=== PATIENT | male | born 1995 | race African-American/Black ===

== ENCOUNTER 2019-03-15 12:47 | Outpatient (CLI) | payer OTHER ==
--- NOTE | 2019-03-15 14:08 | ULT ---
Hepatic arterial Doppler ultrasound: 03/15/2019 COMPARISON: None HISTORY: Abnormal liver enzymes TECHNIQUE: Multiplanar grayscale sonographic imaging of the abdomen obtained including assessment of hepatic and splenic vasculature assessed with color flow and spectral analysis FINDINGS: The visualized pancreas is unremarkable. Distal body and tail are obscured by bowel gas. IVC and aorta appear grossly unremarkable. Common bile duct measures 3 mm, within normal limits. The gallbladder is filled with stones. The main portal vein, right portal vein, and left portal vein are patent and demonstrate appropriate waveforms. The middle, right, and left hepatic veins are patent and demonstrate appropriate waveforms. No focal liver lesion or intrahepatic biliary dilatation noted. The spleen measures 9.7 cm, within normal limits. Splenic artery and splenic vein are patent and demo nstrate appropriate directional flow and waveforms. The nuclear physician reports a negative Krueger's sign. IMPRESSION: Unremarkable hepatic Doppler ultrasound aside from cholelithiasis.
== END 2019-03-15 12:48 | disposition home or self-care (01) ==
LOC: BICULT 12:47
PROVIDERS: ATTEND Internal Medicine Gastroenterology
DX: R74.0 Nonspecific elevation of levels of transaminase and lactic acid dehydrogenase [LDH] (principal); K80.20 Calculus of gallbladder without cholecystitis without obstruction
CPT/HCPCS: 76705